=== PATIENT | female | born 1940 | race Caucasian/White ===

== ENCOUNTER → 2017-02-09 | Outpatient (CLI) | payer OTHER ==
[~2017-02-09] VITALS: Ht 157.5 cm; Wt 83.9 kg
[~2017-02-09] MED LIST: ADULT LOW DOSE81 MG PO; ALPRAZOLAM 0.0.25 M1 PO; BUSPAR15 MG PO; CARAFATE 1 GM TA1 G1 PO; COZAAR 50 MG TA50 M1 PO; COZAAR 50 MG TA50 MG PO; CRESTOR20 MG PO; DETROL LA4 MG PO; HYDROCODON-ACE1 EAC7 PO; HYDROCODON-ACE1 EACH PO; IBUPROFEN 400400 M1 PO; KLOR-CON 1010 MEQ PO; LASIX 20 MG TAB20 MG PO; LEXAPRO; LEXAPRO 10 MG T10 M2 PO; LEXAPRO 10 MG T10 MG PO; LIDODERM 5%1 PATC1 TRANSDERM; MOBIC7.5 MG PO; MULTIVITAMINS; NORCO 5-325 TA1 EACH PO; NORVASC5 MG PO; ONDANSETRON HCL4 M2 PO; OXYBUTYNIN 5 MG5 M2; PRAVACHOL40 MG PO; PROBIOTIC1 EAC1 PO; PROTONIX40 MG PO; PROZAC 20 MG20 M1 PO; RESTORIL30 MG PO; SLEEPING PILL; STOOL SOFTENER100 MG PO; SYNTHROID100 MCG PO; TOPROL XL50 MG PO; TRAMADOL 50 MG50 MG PO; TRAMADOL HCL E200 MG PO; TRIAMTERENE-HC1 EAC1 PO; UNICOMPLEX M TA1 TA1 PO; VALERIAN400 MG; VESICARE 5 MG TA5 M1 PO; VESICARE10 M1 PO; VITAMIN B-6100 MG PO; VITAMIN B-625 MG PO; VOLTAREN GEL 1100 G1 TOP
[2017-02-09 13:50] VITALS: BP 106/62
== END | disposition home or self-care (01) ==
LOC: PAIN 06:54
DX: M54.16 Radiculopathy, lumbar region (principal); M96.1 Postlaminectomy syndrome, not elsewhere classified; M53.3 Sacrococcygeal disorders, not elsewhere classified; M47.818 Spondylosis without myelopathy or radiculopathy, sacral and sacrococcygeal region; G89.4 Chronic pain syndrome; Z98.890 Other specified postprocedural states; Z87.891 Personal history of nicotine dependence

== ENCOUNTER → 2017-07-17 | Outpatient (CLI) | payer OTHER ==
[~2017-07-17] VITALS: Ht 152.4 cm; Wt 86.2 kg
[~2017-07-17] MED LIST changes: +DOXYCYCLINE 10100 MG PO; +FLONASE 0.05%50 MCG NASAL; +MAGOX 400400 MG PO; +NEURONTIN100 MG PO; +OMEGA 3 PO; +VITAMIN D1000 UNI1 PO
--- NOTE | ~2017-07-17 | HPC ---
[facility] [address] [place] [address] PAIN MANAGEMENT CONSULTATION Name: CL MAY Room #: REG [facility] Glenn#: [id number] Admission: 07/17/17 Attend Phys: Jasen Sandy DO Discharge: Date of : 40 Report #: [id number] THIS REPORT FOR: //name// CC: Colten Sandy DATE OF SERVICE: 07/17/2017 HISTORY OF PRESENT ILLNESS: This is a 76-year-old female, not seen since January. She has symptomatic lumbar radiculopathy status post decompressive laminectomy and lumbosacral spondylosis, spinal cord stimulator ([employer]) for radicular pain. This is actually in about 9 years and may require a battery change soon. Last visit, we did proceed with epidural injection at L5-S1 with good relief of radicular symptoms. She returns to pain clinic today with multiple complaints. She notes she is having paresthesia in her hands, describing a spasm sensation. She describes it as her leg "grabbing," but sounds like a cramp in the medial thigh bilateral. She states that is occurs perhaps 2 times a week. It is intense for several minutes, it tends to occur at night, but it is quite painful. It sounds like maybe related to a nerve compromise and radicular pattern pain. Also, has foot spasms at night, again sounding very much like lumbar radicular manifestation. She tells me today she is also having numbness in her hands. This I find curious, she has tingling in her fingers. Fortunately, she has seen a neurologist who has ordered EMGs of the upper and lower extremities. Even more concerningly the last 2-4 months, she has been having a significant gait disturbance and coordination issues. Today, she does have a markedly ataxic wide-based gait, which is dramatically different than what I have seen in the past. The patient was seen for prolonged visit today, greater than 30 minutes was spent reviewing issues. She was seen from 1349 to approximately 1430. PHYSICAL EXAMINATION: Shows an obese 76-year-old female, BMI is 37.1 kilograms per meter squared. Blood pressure 126/68, pulse 58, respirations 16. Cranial nerves 2-12 are grossly intact. She does have a little bit of a head and upper arm tremor. Cervical range of motion is full. No change in radicular symptoms. Upper extremity strength is symmetric. Deep tendon reflexes are symmetric for the upper extremities, biceps, brachioradialis and triceps 1/4. Hand grasp is symmetric. Tinel's is negative. Rises from chair using armrest, again wide based, markedly ataxic gait. Lower extremity strength is generally symmetric. Patellar reflex is absent on the right, 2/4 on the left. The strength is symmetric about 3-4/5. Straight leg raise is negative. Achilles reflexes are preserved. [address] [address] PAIN MANAGEMENT CONSULTATION Name: CL MAY Room #: REG [facility] Elizabeth#: [id number] Admission: 07/17/17 Attend Phys: Jasen Sandy DO Discharge: Date of : 40 Report #: [id number] ASSESSMENT: Neuropathic pain component, status post lumbar decompressive laminectomy, I am not sure what to make of the paresthesia in her hands. RECOMMENDATION: 1. Strongly recommend the patient continue follow up with Neurology regarding EMGs. I did request copy of the EMGs when they are obtained (both upper and lower extremity). 2. We will postpone any interventional therapy at this time. 3. [employer] rep did meet with the patient today, actually some time before I saw the patient. They did work with the patient regarding reprogramming the stimulator. It will need to be replaced in the near future. Dr. Nigel Al had done the patient's back surgery. We may ask him to replace the generator. After discussion with the patient today, we have elected to trial a neuropathic membrane stabilizing agent, taken the liberty of starting the patient on gabapentin 100 mg at bedtime, titrating over 9 nights to 3 tablets at bedtime. Follow up in 1 month to evaluate efficacy of initiation of gabapentin and to review EMG findings. <ELECTRONICALLY SIGNED> By: Jasen Sandy DO 07/30/17 0913 [id number] Jasen Sandy DO /nt
[2017-07-17 13:55] VITALS: BP 126/68
== END ==
LOC: PAIN 07-06 06:49
DX: M54.16 Radiculopathy, lumbar region (principal); M47.897 Other spondylosis, lumbosacral region; Z98.890 Other specified postprocedural states

== ENCOUNTER → 2018-06-29 | Outpatient (CLI) | payer OTHER ==
[~2018-06-29] VITALS: Ht 152.4 cm; Wt 89.4 kg
[~2018-06-29] MED LIST changes: +ADVIL200 M1 PO; +ULTRAM50 MG PO
--- NOTE | ~2018-06-29 | HPC ---
[facility] [address] [place] [address] PAIN MANAGEMENT CONSULTATION Name: CL MAY [facility] [id number] Admission: 06/29/18 Attend Phys: Stevo Sandy DO Discharge: Date of : 40 Report #: [id number] THIS REPORT FOR: //name// CC: LISA Rodriguez DATE OF SERVICE: 06/29/2018 REFERRING PHYSICIAN: Dr. Lisa Al. CHIEF COMPLAINT: Low back pain, right lower extremity pain and paresthesias. HISTORY OF PRESENT ILLNESS: As you know, the patient is a somewhat confused 77-year-old female with longstanding history of low back pain, lower extremity pain with paresthesias, who has been referred back to our clinic to trial injection therapies to address lumbar radicular symptoms, unresolved by her spinal cord stimulator. Apparently, the patient underwent battery reimplantation, but yet the patient continues to experience paresthesias from the device. I do not feel the device is tuned correctly and is not utilizing the more effective subperceptional higher frequencies to address pain. I believe further evaluation and adjustments in that device need to be made. She returns today requesting a caudal epidural injection to address ongoing pain issues. Apparently, a caudal epidural injection worked most effectively for this patient over lumbar epidural injections. ALLERGIES: ERYTHROMYCIN, PENICILLIN, CEPHALOSPORINS, TEMAZEPAM, DIAZEPAM, MORPHINE, CODEINE, HYDROCODONE, FENTANYL AND MEPIVACAINE. SOCIAL HISTORY: The patient denies tobacco, alcohol or illicit drug use. She is unaccompanied today. IMAGING: No new imaging available. PQRS: The patient has osteoarthritic changes in the low back, bilateral hips and bilateral knees. No rheumatoid arthritis. She is placing pain intensity today at 6/10. She is not a fall risk, has not had a fall in the last 3 months. She is not on blood thinners, not treated for hypertension. She is not on chronic opioids. She indicates pain impact of 60/70, a near complete interference of daily activities secondary to pain. PHYSICAL EXAMINATION: VITAL SIGNS: Blood pressure 135/60, pulse 61, respiratory rate 20 and unlabored. The patient is 98% on room air. Height 5 feet tall, weight 197 pounds, BMI calculated 38.5. [place] [address] PAIN MANAGEMENT CONSULTATION Name: CL MAY Room #: REG [facility]#: [id number] Admission: 06/29/18 Attend Phys: Stevo Sandy DO Discharge: Date of : 40 Report #: [id number] GENERAL: Well-developed, well-nourished, well-hydrated, morbidly obese 77-year-old female, appearing stated age, placing current pain score 6/10. HEENT: Normocephalic, atraumatic. Pupils equal, round, reactive to light. EXTREMITIES: Show no clubbing, no cyanosis, no edema. MUSCULOSKELETAL: Seated straight leg raising is negative. Supine straight leg raising mildly positive. Bob test negative. Modified Gaenslen's positive for axial low back pain. Ankle clonus negative. Babinski is negative. ASSESSMENT: 1. Symptomatic lumbar radiculopathy. 2. Severe and progressively worsening spinal stenosis of lumbar spine. 3. Displacement of lumbar intervertebral disk with radiculopathy. 4. Lumbosacral spondylosis with radiculopathy. 5. Facet arthropathy of the lumbar spine. 6. Chronic intractable pain. PLAN: 1. The patient returns today in followup visit requesting caudal epidural injection under fluoroscopic guidance. Apparently, the patient has had this injection in the past around 2014 with good efficacy. She requested this epidural injection specifically. We have tried lumbar epidural injections in the past with good improvement as well, but she has requested a caudal specifically today. She has been advised risks and benefits of procedure, states understood and wished to proceed. 2. We have made no changes in the patient's medication management. We do recommend the patient to follow up with the [employer] device bottling equipment sales representative to make adjustments to her spinal cord stimulator to remove the paresthesias and utilize the more effective high frequency treatment option that is allowed by this new battery pack. We will defer to the neurosurgery team who implanted the device to make that adjustment. PROCEDURE NOTE DESCRIPTION OF PROCEDURE: Caudal epidural steroid injection under fluoroscopic guidance. This is the first procedure of the third series that the patient is undergoing. After obtaining written consent, the patient was taken back to the fluoroscopy suite and placed in a prone position with a pillow under the abdomen to decrease the lumbar lordosis. The skin overlying the lumbosacral area was prepped and draped in an aseptic fashion. The sacral hiatus was identified with the aid of lateral fluoroscopy. The skin and subcutaneous tissue overlying the target site of injection was anesthetized using 3 mL of 1% lidocaine. A 22-gauge 4-1/2 inch Tuohy needle was then introduced into the epidural space via the sacral hiatus. Needle position in the sacral canal was verified by lateral view on fluoroscopy. [address] [address] PAIN MANAGEMENT CONSULTATION Name: CL MAY Room #: REG [facility]#: [id number] Admission: 06/29/18 Attend Phys: Stevo Sandy DO Discharge: Date of : 40 Report #: [id number] A catheter was not used during procedure. After negative aspiration for heme CSF, a total of 1 mL of Omnipaque was injected. A lumbosacral epidurogram was confirmed using AP and lateral fluoroscopy. After negative aspiration for heme or CSF, 7 mL of solution containing 2 mL 40 mg per mL, 80 mg total triamcinolone and 5 mL of lidocaine 1%. was injected in increments. Contrast spread was noted within posterior epidural space. The needle was then retracted approximately retirement and the needle track was flushed with 1 mL of 1% lidocaine. There were no apparent new sensory deficits in the lower extremities present following the procedure. A sterile bandage was placed over the injection site. There were no apparent complications. The patient tolerated the procedure well and was carefully escorted to the recovery room in stable condition. After meeting discharge criteria, the patient was discharged home. By: [id number] Stevo Sandy DO /nt
[2018-06-29 14:29] VITALS: BP 135/60
== END | disposition home or self-care (01) ==
LOC: PAIN 11:20
DX: M51.16 Intervertebral disc disorders with radiculopathy, lumbar region (principal); M48.061 Spinal stenosis, lumbar region without neurogenic claudication; M47.27 Other spondylosis with radiculopathy, lumbosacral region; M46.96 Unspecified inflammatory spondylopathy, lumbar region; G89.29 Other chronic pain; M19.90 Unspecified osteoarthritis, unspecified site; Z79.82 Long term (current) use of aspirin; Z88.0 Allergy status to penicillin; Z88.8 Allergy status to other drugs, medicaments and biological substances; Z79.899 Other long term (current) drug therapy; Z87.891 Personal history of nicotine dependence; Z98.890 Other specified postprocedural states

== ENCOUNTER → 2018-07-14 | Outpatient (CLI) | payer OTHER ==
[~2018-07-14] VITALS: Ht 152.4 cm; Wt 91.2 kg
[2018-07-14 10:31] VITALS: BP 157/84
== END ==
LOC: PAIN 10:01
DX: M79.659 Pain in unspecified thigh (principal); G89.29 Other chronic pain; Z87.891 Personal history of nicotine dependence

== ENCOUNTER → 2018-10-05 | Outpatient (CLI) | payer OTHER ==
[~2018-10-05] VITALS: Ht 149.9 cm; Wt 90.0 kg
--- NOTE | ~2018-10-05 | HPC ---
[facility] [address] [place] [address] PAIN MANAGEMENT CONSULTATION Name: CL MAY Room #: REG [facility] Cosmo.#: [id number] Admission: 10/05/18 ������������������ Attend Phys: Stevo Sandy DO Discharge: ������������������ Date of : 40 Report #: [id number] THIS REPORT FOR: //name// CC: DANITZA Rodriguez DATE OF SERVICE: 10/05/2018 CHIEF COMPLAINT: Low back pain, right lower extremity pain and paresthesias, left lower extremity pain with paresthesias. HISTORY OF PRESENT ILLNESS: As you know, the patient is a 78-year-old female with longstanding history of low back pain, bilateral lower extremity pain and paresthesias, right greater than left. She has undergone epidural injections over a long period of time each of which have begun to lose efficacy. She has been undergoing epidural injections since 2008 for progressively worsening severe spinal stenosis at the L4-L5 level. She returns today in followup visit having undergone a caudal epidural injection at last visit per her request. Initially, she advised that it provided no improvement in symptoms, then retracted that statement and said that it took longer than normal epidurals, but only gave 20% improvement overall. She now is experiencing weakness in the left leg with sensations of loss of function with the left foot. She states she is having issues of stumbling periodically. Her gait is unsteady. She states that she cannot even feel her left foot. She has returned today in followup visit stating she would like to undergo a lumbar epidural injection, though during today's evaluation, I advised the patient at her last visit, she indicated that lumbar epidural injections were no longer effective. I believe the patient does have some underlying dementia and this is apparently worsening. She is adamant that she undergoes a lumbar epidural injection today. I advised the patient that we would be providing this with the understanding that ultimately if she wishes to improve her back symptoms, lower extremity pain and potentially improve this left foot weakness that decompression of the spinal stenosis at the L4-L5 level may be necessary. She returns today requesting a lumbar epidural injection under fluoroscopic guidance. ALLERGIES: ERYTHROMYCIN, PENICILLIN, CEFAZOLIN, TEMAZEPAM, DIAZEPAM, MORPHINE, CODEINE, HYDROCODONE, FENTANYL, MEPIVACAINE. SOCIAL HISTORY: The patient denies tobacco, alcohol or IV or illicit drug use. She is unaccompanied today. IMAGING: No new imaging available. PQRS: The patient has known osteoarthritic changes of the lumbar spine, bilateral hips, bilateral knees. No rheumatoid arthritis. [place] [address] PAIN MANAGEMENT CONSULTATION Name: CL MAY Room #: REG [facility]#: [id number] Admission: 10/05/18 ������������������ Attend Phys: Stevo Sandy DO Discharge: ������������������ Date of : 40 Report #: [id number] intensity today at 12/03. She is a fall risk. She has had near falls multiple times, specifically due to left foot weakness over the last 3 months. She is not on blood thinners. She is treated for hypertension. She is not on chronic opioids. She is placing pain impact at 62/70 indicating severe near complete interference of daily activities secondary to pain. PHYSICAL EXAMINATION: VITAL SIGNS: Blood pressure 159/68, pulse 66, respiratory rate 20 and unlabored. The patient is 99% on room air. Height 4 feet 11 inches tall, weight 198.4 pounds, BMI calculated 40.1. GENERAL: Well-developed, well-nourished, well-hydrated, class 3 morbidly obese 78-year-old female, appears her stated age. She is placing current pain score at 5/10. HEENT: Normocephalic, atraumatic. Pupils equal, round, reactive to light. Extraocular muscles are intact. Sclerae nonicteric, without injection. The patient is deemed a poor historian. LUNGS: Clear, no wheeze, rhonchi or rales. CARDIOVASCULAR: Regular. No appreciable gallop or rub. ABDOMEN: Soft, severely obese, normoactive bowel sounds. EXTREMITIES: Show no clubbing, no cyanosis, no edema. MUSCULOSKELETAL: Lower extremity strength is weakened on the left when compared to the right that is noted with dorsiflexion and plantar flexion of the left foot when compared to the right. She is deconditioned in the lower extremities, but muscle strength overall except for the left foot 5/5. She is intact to light touch from L1 through S2 dermatomes. Gait is antalgic favoring left lower extremity over right. Seated straight leg raising negative. Supine straight leg raising positive. Bob's test negative. Modified Gaenslen's positive for axial low back pain. ASSESSMENT: 1. Lumbar radiculopathy. 2. Severe and progressively worsening spinal stenosis of the lumbar spine. 3. Spondylolisthesis of L4 on L5. 4. Displacement of lumbar intervertebral disk with radiculopathy. 5. Lumbosacral spondylosis with radiculopathy. 6. Lateral recess stenosis of lumbar spine. 7. Neuroforaminal stenosis of lumbar spine. 8. Facet arthropathy of the lumbar spine 9. Lumbar degeneration. 10. Chronic intractable pain. PLAN: 1. The patient returns today in followup visit requesting to undergo a lumbar epidural injection under fluoroscopic guidance. She reports no significant improvement with these injections at previous visit, but now is reporting that she received excellent benefit. She is not a reliable historian. It does [facility] [address] [place] [address] PAIN MANAGEMENT CONSULTATION Name: CL MAY Room #: REG [facility] Glenn#: [id number] Admission: 10/05/18 ������������������ Attend Phys: Stevo Sandy DO Discharge: ������������������ Date of : 40 Report #: [id number] appear that she receives these injections and does not tend to contact our clinic or call back to our clinic for at least a 2-month period of time. I believe there is some efficacy with the injections, but we are losing this efficacy quite rapidly. She underwent a caudal epidural injection in her last visit in hopes of improving pain more prolonged. Unfortunately, her symptoms were not amenable to that injection. She returns requesting an interlaminar epidural injection in hopes of improving pain understanding that the efficacy loss is likely due to worsening stenosis at the L4-L5 level. She has been advised risks and benefits of the procedure, states understood and wished to proceed. 2. We will be sending the patient for CT of the lumbar spine without contrast. I have requested this to be completed given the new results of her physical exam and her history of stumbling and falling due to left lower extremity weakness and lack of sensation in the left foot. I do believe that the patient will ultimately need to look toward surgical options. The patient will undergo CT examination as quickly as possible. We will review the findings once they are available. 3. I have taken the liberty of contacting the patient's neurosurgery team. We will have the patient return to see her neurosurgeon to discuss the options for treatment from a surgical standpoint given the weakness in the left lower extremity. Based on her history and the findings on physical exam today, I believe that decompression may be necessary. The patient will return to see her neurosurgeon. The fact that she has not seen a prolonged improvement with the epidural injections and her pain is not controlled by spinal cord stimulator along with the fact that the patient is not a candidate for opioid management given her underlying issues of mentation, we have very little options available to continue to treat the patient from a conservative standpoint. The patient will follow up with her neurosurgeon further. 4. We will see the patient back in followup visit on an as needed basis. PROCEDURE NOTE DESCRIPTION OF PROCEDURE: Lumbar epidural steroid injection under fluoroscopic guidance. After obtaining written consent, the patient was taken back to fluoroscopy suite, placed in prone position with pillow under abdomen to decrease lumbar lordosis. Skin overlying lumbosacral area then prepped and draped in aseptic fashion. Lumbar intervertebral spaces were identified by AP fluoroscopy. Skin and subcutaneous tissue overlying target site of injection was anesthetized with 3 mL of 1% lidocaine. A 20-gauge 4-1/2 inch Tuohy needle advanced under fluoroscopic guidance towards the epidural space using paramedian approach. Epidural space identified using loss of resistance to air technique. After negative aspiration for heme or cerebrospinal fluid, 1 mL of Omnipaque injected. Lumbar epidurogram confirmed [address] [address] PAIN MANAGEMENT CONSULTATION Name: LALOCL L Room #: REG KAREN Elizabeth#: [id number] Admission: 10/05/18 ������������������ Attend Phys: Stevo Sandy DO Discharge: ������������������ Date of : 40 Report #: [id number] using both AP and lateral fluoroscopy. After negative aspiration for heme or cerebrospinal fluid, 5 mL of solution containing 2 mL 40 mg per mL 80 mg total triamcinolone, 3 mL lidocaine 1% injected slowly. Needle retracted long-term, flushed with 1 mL of 1% lidocaine and then removed. Sterile bandage placed over injection site. No new motor deficits present in the lower extremity following the procedure. The patient tolerated procedure well, carefully escorted to recovery room in stable condition. No apparent complications. After meeting discharge criteria, the patient discharged home. ��������������������������������������������� ���������������������������������������� By: ��������������������������������������������� 1007 0019 Stevo Sandy DO /andrew
[2018-10-05 13:05] VITALS: BP 159/68
--- NOTE | 2018-10-05 13:16 | NUR ---
Pain Clinic Assessment: 1. History of Osteoarthritis: History of Rheumatoid Arthritis: 2. Height: 4 ft. 11 in. 149.9 cm. Weight: 198.4 lb. oz. 89.994 kg. Patient's BMI: 40.1 3. Vital Signs: BP: 159/68 Pulse: 66 Resp: 20 Temp: 02 Sat: 99 ECG Mon: 4. Pain Intensity: 5 5. Fall Risk: Dizziness: Y Needs help standing or walking: N Fallen in the last 3 months: Y Fall risk comments: 6. Patient on Blood Thinner: None 7. History of Hypertension: N 8. Opioid Therapy greater than 6 weeks: N Opiate Contract Signed: 9. Risk Assessment Tool Provided: 10. Functional Assessment Tool: 11. Recreational Drug Use: Never Drug Type: Tobacco Use: Former Smoker Tobacco Type: Amount or Packs/day: How Many Years: Alcohol Use: No Frequency: Quant:
== END | disposition home or self-care (01) ==
LOC: PAIN 08-17 13:58
DX: M51.16 Intervertebral disc disorders with radiculopathy, lumbar region (principal); M48.061 Spinal stenosis, lumbar region without neurogenic claudication; M43.16 Spondylolisthesis, lumbar region; M47.27 Other spondylosis with radiculopathy, lumbosacral region; M47.26 Other spondylosis with radiculopathy, lumbar region; G89.29 Other chronic pain; I10 Essential (primary) hypertension; M19.90 Unspecified osteoarthritis, unspecified site; Z88.0 Allergy status to penicillin; Z88.6 Allergy status to analgesic agent; Z88.8 Allergy status to other drugs, medicaments and biological substances; Z87.891 Personal history of nicotine dependence; Z98.890 Other specified postprocedural states; Z79.899 Other long term (current) drug therapy; Z79.82 Long term (current) use of aspirin

== ENCOUNTER → 2018-10-08 | Outpatient (CLI) | payer OTHER | LOC: CAT 11:42 | DX: M51.27 Other intervertebral disc displacement, lumbosacral region (principal); M51.36 Other intervertebral disc degeneration, lumbar region; M48.061 Spinal stenosis, lumbar region without neurogenic claudication; M43.17 Spondylolisthesis, lumbosacral region; M25.78 Osteophyte, vertebrae; M41.86 Other forms of scoliosis, lumbar region; I25.10 Atherosclerotic heart disease of native coronary artery without angina pectoris ==

== ENCOUNTER → 2020-03-22 | Outpatient (CLI) | payer OTHER ==
[~2020-03-22] MED LIST changes: +BYSTOLIC20 MG PO; +COLACE100 MG PO; +LISINOPRIL2.5 MG PO; +SYNTHROID100 MC1 PO; +VITAMIN D3250 MCG PO
== END ==
LOC: SJCVC 11:21
PROVIDERS: ATTEND Internal Medicine Cardiovascular Disease
DX: R94.31 Abnormal electrocardiogram [ECG] [EKG] (principal); I47.1 Supraventricular tachycardia; E78.5 Hyperlipidemia, unspecified; I11.0 Hypertensive heart disease with heart failure; I50.30 Unspecified diastolic (congestive) heart failure; Z79.899 Other long term (current) drug therapy

== ENCOUNTER → 2020-03-28 | Outpatient (CLI) | payer OTHER ==
[~2020-03-28] VITALS: Ht 147.3 cm; Wt 86.2 kg
[2020-03-28 09:13] VITALS: BP 173/79
--- NOTE | 2020-03-28 14:46 | EKG ---
[facility] [place] [address] ELECTROCARDIOGRAM REPORT Name: CL MAY Room #: REG [facility]#: [id number] Admission: 03/28/20 Attend Phys: Yadiel Leblanc MD, Discharge: Date of : 40 Report #: [id number] THIS REPORT FOR: cc: Colten Rodriguez Timothy C. 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 Tender: SBULBENITA : 1940 Requested By: Yadiel Leblanc Order Number: [id number] MD: Ghassan Zaidi Measurements Intervals [place] Rate: 57 P: 23 WI: 181 QRS: -28 QRSD: 96 T: 37 QT: 452 QTc: 440 Interpretive Statements Sinus rhythm Left ventricular hypertrophy Poor R wave progression consider left ventricular hypertrophy Leftward axis Compared to ECG 04/15/2015 06:21:41 Left ventricular hypertrophy now present Electronically Signed On 03-28-2020 14:46:47 CDT by Ghassan Zaidi [email or web address] <ELECTRONICALLY SIGNED> By: Ghassan Zaidi MD 03/28/20 1446 0849 0849 Ghassan Zaidi MD /EPI
--- NOTE | 2020-03-28 17:32 | CATHLAB ---
[facility] [place] [address] INVASIVE PROCEDURE REPORT Name: CL MAY Room #: REG KAREN WilburnOly#: [id number] Admission: 03/28/20 Attend Phys: Yadiel Leblanc MD, Discharge: Date of : 40 Report #: [id number] THIS REPORT FOR: cc: Colten Rodriguez Timothy C. DO Mancuso, Gerald M. MD [facility] ~ APPROVED REPORT Study performed: 03/28/2020 10:22:57 Patient Details Patient Status: Out-Patient Room #: The patient is a 79 year-old female Event Personnel Yadiel Leblanc Director Outcomes, Serena Hartman RN RN, Shelly Elizabeth RTR, MUSICAL THERAPIST Monitor, Leeann Lofton RTR Scrub Procedures Performed Art Access - R femoral artery* Pablo Access - R femoral vein Right and Left Heart Cath w/or w/o Coronarie [id number] [facility] Aortogram Abdominal Peripheral Angio [id number] Renal Bilateral Peripheral Angiography [id number] CVRENALBIL Hemostasis w/ Mynx Indication Dyspnea, Positive stress test Procedure Narrative The Right Groin^ was infiltrated with subcutaneous anesthesia. A PINNACLE 6FR Sheath #[id number] sheath was inserted into the RFA. Coronary angiography was performed using coronary diagnostic catheters. The right coronary system was accessed and visualized with a JR4 catheter. The left coronary system was accessed and visualized with a JL4 catheter. The left ventricle was accessed and visualized with a PIGTAIL catheter. Left ventriculogram was performed in 30 degree projection. An aortogram of the abdominal aorta was performed. Pre-demployment femoral angiogram was performed . Closure device was deployed with a 6 Fr MYNXGRIP 6/7F #[id number]. Hemostasis was obtained with manual pressure following sheath removal without any complications. The patient tolerated the procedure well and there were no complications associated with the procedure. There was no hematoma. [facility] [address] [place] [address] INVASIVE PROCEDURE REPORT Name: LALOCL Ole Room #: REG [facility]#: [id number] Admission: 03/28/20 Attend Phys: Yadiel Leblanc, Discharge: Date of : 40 Report #: [id number] Intraoperative Conscious Sedation Fentanyl 100 mcg No sedation was given. Patient is allergic to versed. Fluoro Time: 8.60 minutes Dose: DAP 7709.00 cGycm2 713 mGy Contrast Type and Amount: Omnipaque 90 ml Hemodynamics The right atrial mean pressure is 12 mmHg. The right ventricular pressure is 45/2 mmHg. The aortic pressure is 216/85 mmHg with a mean of 127 mmHg. The left ventricular pressure is 188/10 mmHg with a mean of mmHg. The left ventricular end diastolic pressure is 21 mmHg. Conclusion 1. Left main free of disease giving rise to LAD and circumflex #2 LAD is a diffusely diseased vessel and small is a type I stops markedly short of the apex. No occlusive disease. #3 circumflex OM nondominant with mild disease and ostial OM lesion of 30 to 40% #4 large dominant right coronary with proximal calcification 40% proximal and mid smaller PDA QIAN preserved. #5 successful right heart catheterization see hemodynamics above. Mild pulmonary hypertension #6 selective bilateral renal angiography with mild left renal artery ostial disease. Conditions and plan: Continue aggressive risk factor modification. Patient has significant labile hypertension. Does not appear to be on the basis of renal artery stenosis. Has moderate three-vessel coronary disease. Treat aggressively. Will replace lisinopril with 40 mg of almost Vincent and continue bystolic. Follow-up 1 month with blood pressure diary <ELECTRONICALLY SIGNED> By: Yadiel Leblanc MD, FACC 03/28/20 1732 31 31 Yadiel Leblanc MD, FACC /INF
== END | disposition home or self-care (01) ==
LOC: CATH 08:05
PROVIDERS: ATTEND Internal Medicine Cardiovascular Disease
DX: R06.00 Dyspnea, unspecified (principal); R94.39 Abnormal result of other cardiovascular function study; I25.10 Atherosclerotic heart disease of native coronary artery without angina pectoris; I70.1 Atherosclerosis of renal artery; I11.0 Hypertensive heart disease with heart failure; I50.9 Heart failure, unspecified; I48.91 Unspecified atrial fibrillation; E78.5 Hyperlipidemia, unspecified; E03.9 Hypothyroidism, unspecified; K21.9 Gastro-esophageal reflux disease without esophagitis; Z98.890 Other specified postprocedural states; Z79.01 Long term (current) use of anticoagulants; Z79.899 Other long term (current) drug therapy; Z79.82 Long term (current) use of aspirin; Z87.19 Personal history of other diseases of the digestive system; Z88.8 Allergy status to other drugs, medicaments and biological substances; Z82.49 Family history of ischemic heart disease and other diseases of the circulatory system

== ENCOUNTER → 2020-07-31 | Outpatient (CLI) | payer OTHER | LOC: SJCVC 12:57 | PROVIDERS: ATTEND Internal Medicine Cardiovascular Disease | DX: R94.31 Abnormal electrocardiogram [ECG] [EKG] (principal); I11.0 Hypertensive heart disease with heart failure; I50.30 Unspecified diastolic (congestive) heart failure; I47.1 Supraventricular tachycardia; I25.10 Atherosclerotic heart disease of native coronary artery without angina pectoris; E78.5 Hyperlipidemia, unspecified; E66.9 Obesity, unspecified; Z79.82 Long term (current) use of aspirin; Z79.899 Other long term (current) drug therapy ==